=== PATIENT | male | born 1940 | race Caucasian/White ===

== ENCOUNTER → 2018-02-16 | Outpatient (CLI) | payer MEDICARE | LOC: GMAB 12:15 | PROVIDERS: ATTEND Family Medicine | DX: C20 Malignant neoplasm of rectum (principal); I10 Essential (primary) hypertension; Z12.5 Encounter for screening for malignant neoplasm of prostate | CPT/HCPCS: 82378; 84443; G0103 ==

== ENCOUNTER 2018-11-05 14:00 | Emergency (ER) | payer MEDICARE ==
--- NOTE | 2018-11-05 14:20 | ED.PDOC ---
History of Present Illness - General Chief Complaint: Respiratory Problem Stated Complaint: Difficulty breathing Time Seen by Provider: 11/05/18 14:17 Source: patient, RN notes reviewed Additional Information: 78 YEAR OLD WHITE MALE HERE FOR EVALUATION OF SHORTNESS OF BREATH COUGH LAST 2 MONTHS HE HAS SOME ORTHOPNEA AND EXERTIONAL DYSPNEA DENIES FEVER CHILLS NO CHEST PAIN PAST MEDICAL HISTORY HTN ATRIAL FIBRILLATION COLON CANCER WITH RESECTION SIGMOID COLON AND COLOSTOMY IN MID 2016 ( THE DISEASE WAS LOCALIZED THEREFORE NO CHEMO WAS DONE ABDOMINAL AORTIC ANEURYSM - History of Present Illness Timing/Duration: changing over time, intermittent Severity: moderate Improving Factors: nothing Worsening Factors: movement Associated Symptoms: cough, shortness of breath Allergies/Adverse Reactions: Allergies NO KNOWN ALLERGY Allergy (Verified 01/30/16 04:42) Home Medications: Ambulatory Orders Lisinopril/Hctz 20-12.5 mg [Zestoretic 20/12.5] 1 ea PO 01/30/16 Ondansetron Tab [Zofran Tab] 4 mg PO BID PRN #8 tab 01/30/16 Review of Systems - Review of Systems Constitutional: States: no symptoms reported EENTM: States: no symptoms reported Respiratory: States: see HPI Cardiology: States: see HPI Gastrointestinal/Abdominal: States: no symptoms reported Genitourinary: States: no symptoms reported Musculoskeletal: States: no symptoms reported Skin: States: no symptoms reported Neurological: States: no symptoms reported Endocrine: States: no symptoms reported Past Medical History (General) - Patient Medical History Hx Stroke: No - TIAs 2014 Hx Congestive Heart Failure: No Hx Hypertension: Yes Hx Diabetes: No Hx Cancer: Yes - Colon Surgical History: colectomy - Vaccination History Hx Influenza Vaccination: No Hx Pneumococcal Vaccination: No - Social History Hx Tobacco Use: Yes - Quit 2016 Family Medical History - Family History Mother Family History: Unknown Living Status: Physical Exam - Physical Exam General Appearance: Alert, Comfortable Ears, Nose, Throat: hearing grossly normal, normal ENT inspection, normal pharynx Neck: non-tender, full range of motion, supple Respiratory: chest non-tender, lungs clear, normal breath sounds, no respiratory distress, no accessory muscle use Cardiovascular/Chest: normal peripheral pulses, regular rate, rhythm, no edema, no gallop, no JVD, no murmur Gastrointestinal/Abdominal: normal bowel sounds, non tender, soft, no organomegaly Extremity: normal range of motion, non-tender, normal inspection, no pedal edema Neurologic: acid changer II-XII nml as tested, no motor/sensory deficits, alert, normal mood/affect, oriented x 3 Skin Exam: normal color, warm/dry Lymphatic: no adenopathy Progress - Results/Orders Results/Orders: Laboratory Tests 11/05/18 11/05/18 11/05/18 14:15 14:21 14:21 WBC 8.4 RBC 6.06 Hgb 16.9 Hct 51.2 MCV 84.4 MCH 27.9 MCHC 33.1 RDW 15.7 H Plt Count 233 MPV 7.8 Absolute Neuts (auto) 6.60 Absolute Lymphs (auto) 0.90 L Absolute Monos (auto) 0.90 H Absolute Eos (auto) 0.00 Absolute Basos (auto) 0.10 Neutrophils % 77.8 Lymphocytes % 10.4 L Monocytes % 11.0 H Eosinophils % 0.1 L Basophils % 0.7 PT 13.6 H INR 1.36 H PTT (SP) 30.2 pCO2 51 H pO2 41 L* HCO3 32.4 ABG pH 7.420 ABG O2 Saturation 76.8 L ABG Base Excess 6.7 ABG Deoxyhemoglobin 21.3 H Oxyhemoglobin % 70.7 L Carboxyhemoglobin % 7.0 H Methemoglobin % Sat 1.0 Calc Total Hemoglobin 15.6 Sodium Potassium Chloride Carbon Dioxide Anion Gap BUN Creatinine BUN/Creatinine Ratio Random Glucose Serum Osmolality Calcium Total Bilirubin AST ALT Alkaline Phosphatase B-Natriuretic Peptide Serum Total Protein Albumin Globulin Albumin/Globulin Ratio 11/05/18 11/05/18 14:21 14:22 WBC RBC Hgb Hct MCV MCH MCHC RDW Plt Count MPV Absolute Neuts (auto) Absolute Lymphs (auto) Absolute Monos (auto) Absolute Eos (auto) Absolute Basos (auto) Neutrophils % Lymphocytes % Monocytes % Eosinophils % Basophils % PT INR PTT (SP) pCO2 pO2 HCO3 ABG pH ABG O2 Saturation ABG Base Excess ABG Deoxyhemoglobin Oxyhemoglobin % Carboxyhemoglobin % Methemoglobin % Sat Calc Total Hemoglobin Sodium 120 L Potassium 4.2 Chloride 76 L* Carbon Dioxide 32 H Anion Gap 16.2 BUN 36 H Creatinine 1.38 H BUN/Creatinine Ratio 26.1 H Random Glucose 155 H Serum Osmolality 253.7 L* Calcium 8.1 L Total Bilirubin 1.5 H AST 34 ALT 25 Alkaline Phosphatase 76 B-Natriuretic Peptide 686.0 H* Serum Total Protein 6.8 Albumin 3.3 Globulin 3.5 Albumin/Globulin Ratio 0.9 L PT WAS GIVEN LASIX 40 MG IV WITH NO RESULTS HE HAS HYPONATREMIA OF 120 - EKG/XRAY/CT EKG: Atrial, Fibrillation, Flutter XRAY: chest Xray Comments: CHF RIGHT PLEURAL EFFUSION Departure - Departure Clinical Impression: Hypoxemia, Congestive heart failure, Atrial fibrillation, Hyponatremia, Hypoxia Time of Disposition: 16:44 Disposition: Transfer to Hospital Departure Forms: ED Discharge - Pt. Copy, Patient Portal Self Enrollment Referrals: Angelo Toussaint MD [Active Staff] - 1-2 Weeks Home Medications: Ambulatory Orders Lisinopril/Hctz 20-12.5 mg [Zestoretic 20/12.5] 1 ea PO 01/30/16 Ondansetron Tab [Zofran Tab] 4 mg PO BID PRN #8 tab 01/30/16 Transfer to Outside Facility - Transfer Information Accepting Provider:: DR GROSS Accepting Facility: [facility]
--- NOTE | 2018-11-05 14:42 | RAD ---
EXAM DESCRIPTION: Chest,1 View CLINICAL HISTORY: CHF COMPARISON: None available FINDINGS: The cardiac silhouette is prominently enlarged. The right lung base is abnormal, at least partially related to consolidation. The right hemidiaphragm may also be elevated. No left-sided airspace consolidation. A right-sided pleural effusion is suspected. There is no pneumothorax or acute fracture. IMPRESSION: CHF including right basilar edema with a possible small right-sided effusion. Right basilar pneumonia is a less likely consideration. Probable elevation of the right hemidiaphragm contributing to abnormal appearance of the right lung base. This can be further evaluated with follow-up chest radiograph when patient's acute symptoms have resolved. Electronically signed by: Dwayne Lloyd MD 11/05/2018 2:[address] [facility]
[2018-11-05] MEDS ORDERED: FUROSEMIDE INJ 40 MG/4 ML VIAL IV ONE (15:38)
[2018-11-05 17:16] VITALS: TEMP 98.2
[2018-11-05 17:41] VITALS: BP 177/70; O2SAT 89
== END 2018-11-05 18:00 | disposition short-term general hospital (02) ==
LOC: ER 14:00
DX: R09.02 Hypoxemia (principal); I50.9 Heart failure, unspecified; I48.91 Unspecified atrial fibrillation; E87.1 Hypo-osmolality and hyponatremia; I11.0 Hypertensive heart disease with heart failure; Z86.73 Personal history of transient ischemic attack (TIA), and cerebral infarction without residual deficits; Z85.038 Personal history of other malignant neoplasm of large intestine; Z87.891 Personal history of nicotine dependence
CPT/HCPCS: 36600; 71045; 80053; 82803; 82805; 83880; 85025; 85610; 85730; 93005; J1940

== ENCOUNTER → 2018-12-03 | Outpatient (CLI) | payer MEDICARE | LOC: GMAE 12:59 | PROVIDERS: ATTEND Family Medicine | DX: E11.9 Type 2 diabetes mellitus without complications (principal); I48.91 Unspecified atrial fibrillation ==

== ENCOUNTER → 2018-12-08 | Outpatient (CLI) | payer MEDICARE ==
[~2018-12-08] MED LIST: IPRATROPIUM/ALBUTEROL 3 ML VIAL NEB ONE
== END ==
LOC: RESP 09:54
PROVIDERS: ATTEND Family Medicine
DX: J44.9 Chronic obstructive pulmonary disease, unspecified (principal); I50.9 Heart failure, unspecified
CPT/HCPCS: 94010; 94060; J7620

== ENCOUNTER → 2019-02-22 | Outpatient (CLI) | payer MEDICARE ==
--- NOTE | 2019-02-22 20:52 | MRI ---
EXAM DESCRIPTION: Brain w/o Contrast: MRI. CLINICAL HISTORY: MEMORY LOSS COMPARISON: None. TECHNIQUE: Multiplanar, high-field MRI unit, multiple diffusion sequences, multiple conventional sequences without contrast. FINDINGS: Bilateral multiple foci of hyperintense FLAIR and T2-weighted signal in the periventricular white matter and subcortical white matter of the cerebral hemispheres. More involvement is seen in the subcortical white matter within the periventricular white matter.. No hemorrhage, no cerebral edema, no diffusion restriction. Few bilateral hyperintense FLAIR foci in the basal ganglia. Bilateral decreased FLAIR and T2 signal in the internal capsules and deep nuclei with no diffusion restriction. Normal signal in the bilateral brainstem and cerebellar hemispheres. No hemorrhage, no cerebral edema, no mass-effect. Concordance of the diffusion and non-diffusion sequences with no diffusion restriction. Cortical sulci, ventricles, and other CSF spaces, and the subdural spaces are age appropriate. No effacement or displacement. No midline shift. No extra-axial hemorrhage. Normal flow signal void in the major vessels of the [place], and the venous sinuses. IACs are symmetric bilaterally. Large right vertebral artery with left vertebral artery barely visible. Normal signal in the bilateral mastoid air cells. No mass effect in the bilateral cerebellopontine angles. Pituitary gland occupies approximately half of the sella. Base of the cerebellar tonsils is at the level of the foramen magnum. Air-fluid level and mucoperiosteal thickening in the right maxillary antra minimal mucoperiosteal thickening in the remaining paranasal sinuses. The bony calvarium is intact. IMPRESSION: 1. 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 No diffusion restriction hemorrhage or mass effect. Differential includes metabolic process, vasculitis, and cerebral microvascular disease. Less likely migraine headaches or inflammatory process. Decreased signal in the internal capsules, and deep nuclei can indicate iron deposition and be seen in some dementia syndromes. 2. No intra-axial extra-axial hemorrhage. No diffusion restriction indicating acute or subacute infarction. Electronically signed by: Mukund Parnell MD 02/22/2019 8:49 PM CDT
== END ==
LOC: MRI 13:30
PROVIDERS: ATTEND Family Medicine
DX: G30.9 Alzheimer's disease, unspecified (principal); R41.9 Unspecified symptoms and signs involving cognitive functions and awareness

== ENCOUNTER 2019-03-12 11:08 | Emergency (ER) | payer MEDICARE ==
--- NOTE | 2019-03-12 11:34 | ED.PDOC ---
History of Present Illness - General Chief Complaint: General Time Seen by Provider: 03/12/19 11:13 Source: patient, family Exam Limitations: no limitations - History of Present Illness Initial Comments: patient comes in today secondary to family concerns for possible early dehydration. Patient has had several month history of worsening difficulty with swallowing. He is in the midst of a workup and has a swallowing study this planned for this Thursday. Patient states he is the same as he's been and he feels fine. However, his sister spoke to him this morning express concerns that he was not keeping enough down and would become dehydrated again. Patient states he has been able to keep down some liquids although no solid foods. He has had no emesis or diarrhea today. His son states their primary concern was in the past when he started to have an exacerbation of this he did have a low sodium level and would became dehydrated and so they just wanted him evaluated. Patient states today he feels fine and denies any acute complaints. Timing/Duration: other Severity: mild - not symptomatic at this time Improving Factors: nothing Worsening Factors: eating Associated Symptoms: denies symptoms Allergies/Adverse Reactions: Allergies NO KNOWN ALLERGY Allergy (Verified 01/30/16 04:42) Home Medications: Ambulatory Orders Apixaban [Eliquis] 5 mg PO DAILY 11/05/18 Aspirin [Baby Aspirin] 81 mg PO DAILY 11/05/18 Lisinopril 20 mg PO DAILY 11/05/18 Metoprolol Tartrate 50 mg PO BID 11/05/18 Alprazolam 0.25 mg PO DAILY PRN 03/12/19 Review of Systems - Review of Systems Constitutional: States: no symptoms reported. Denies: chills, fever EENTM: States: no symptoms reported Respiratory: States: no symptoms reported. Denies: cough, short of breath Cardiology: States: no symptoms reported. Denies: chest pain, palpitations Gastrointestinal/Abdominal: States: see HPI. Denies: abdominal pain, diarrhea, nausea, vomiting Past Medical History (General) - Patient Medical History Hx Stroke: No - TIAs 2014 Hx Congestive Heart Failure: No Hx Hypertension: Yes Hx Diabetes: No Hx Cancer: Yes - Colon - Vaccination History Hx Influenza Vaccination: No Hx Pneumococcal Vaccination: No - Social History Hx Tobacco Use: Yes - Quit 2016 Family Medical History - Family History Mother Family History: Unknown Living Status: Physical Exam - Physical Exam General Appearance: Alert, Comfortable, No apparent distress Eye Exam: bilateral normal Ears, Nose, Throat: hearing grossly normal, normal ENT inspection, normal pharynx Respiratory: chest non-tender, lungs clear, normal breath sounds, no respiratory distress Cardiovascular/Chest: normal peripheral pulses, regular rate, rhythm, no edema, no gallop, no JVD, no murmur Peripheral Pulses: radial,right: 2+, radial,left: 2+ Gastrointestinal/Abdominal: normal bowel sounds, non tender, soft Progress - Results/Orders Results/Orders: Laboratory Results Sodium 132 mmol/L (135-145) L 03/12/19 11:59 Potassium 4.4 mmol/L (3.6-5.0) 03/12/19 11:59 Chloride 95 mmol/L (101-111) L 03/12/19 11:59 Carbon Dioxide 24 mmol/L (21-31) 03/12/19 11:59 Anion Gap 17.4 (12-18) 03/12/19 11:59 BUN 24 mg/dL (7-18) H 03/12/19 11:59 Creatinine 1.07 mg/dL (0.6-1.3) 03/12/19 11:59 BUN/Creatinine Ratio 22.4 (10-20) H 03/12/19 11:59 Random Glucose 100 mg/dL (70-105) 03/12/19 11:59 Serum Osmolality 268.6 mOsm/L (275-295) L 03/12/19 11:59 Calcium 9.3 mg/dL (8.4-10.2) 03/12/19 11:59 Total Bilirubin 0.9 mg/dL (0.2-1.0) 03/12/19 11:59 AST 27 IU/L (10-42) 03/12/19 11:59 ALT 16 IU/L (10-60) 03/12/19 11:59 Alkaline Phosphatase 97 IU/L (42-121) 03/12/19 11:59 Serum Total Protein 7.5 gm/dL (6.4-8.2) 03/12/19 11:59 Albumin 3.7 g/dl (3.2-5.5) 03/12/19 11:59 Globulin 3.8 gm/dL (2.3-3.5) H 03/12/19 11:59 Albumin/Globulin Ratio 1.0 (1.1-1.9) L 03/12/19 11:59 Departure - Departure Clinical Impression: Dysphagia Qualifiers: Dysphagia type: unspecified Qualified Code(s): R13.10 - Dysphagia, unspecified Disposition: Discharge to Home or Self Care Condition: Good Departure Forms: ED Discharge - Pt. Copy, Patient Portal Self Enrollment Diet: other - thickened fluids as able Referrals: DEDRICK BOWMAN MD [Primary Care Provider] - 1-2 Weeks Home Medications: Ambulatory Orders Apixaban [Eliquis] 5 mg PO DAILY 11/05/18 Aspirin [Baby Aspirin] 81 mg PO DAILY 11/05/18 Lisinopril 20 mg PO DAILY 11/05/18 Metoprolol Tartrate 50 mg PO BID 11/05/18 Alprazolam 0.25 mg PO DAILY PRN 03/12/19 Additional Instructions: keep follow up as scheduled. Return to ER for weakness, intractable emesis, or shortness of breath
[2019-03-12 12:38] VITALS: BP 111/82; TEMP 97.6; O2SAT 94
== END 2019-03-12 12:37 | disposition home or self-care (01) ==
LOC: ER 11:08
DX: R13.10 Dysphagia, unspecified (principal); I10 Essential (primary) hypertension; Z86.73 Personal history of transient ischemic attack (TIA), and cerebral infarction without residual deficits; Z85.038 Personal history of other malignant neoplasm of large intestine; Z87.891 Personal history of nicotine dependence; Z79.82 Long term (current) use of aspirin; Z79.899 Other long term (current) drug therapy